=== PATIENT | female | born 1985 | race Caucasian/White ===

== ENCOUNTER 2018-02-18 08:29 | Outpatient (CLI) | payer MEDICAID | END 2018-02-18 23:59 | disposition home or self-care (01) | LOC: RAD 08:29 | PROVIDERS: ATTEND Family Medicine | DX: R56.9 Unspecified convulsions (principal); R06.4 Hyperventilation; F17.200 Nicotine dependence, unspecified, uncomplicated; J45.909 Unspecified asthma, uncomplicated; Z88.2 Allergy status to sulfonamides | CPT/HCPCS: 95816 ==

== ENCOUNTER 2021-03-14 11:42 | Inpatient (IN) | payer MEDICAID, OTHER ==
[~2021-03-14] VITALS: Ht 157.5 cm; Wt 57.2 kg
[2021-03-14 21:39] LABS: BASOPHILS % (AUTO) 0.5 % (0-1); EOSINOPHILS % (AUTO) 0.6 % (0-6); HEMATOCRIT 38.5 % (35.0-45.0); HEMOGLOBIN 12.3 g/dl (12.0-16.0); LYMPHOCYTES # (AUTO) 1.8 X10'3 (1.1-4.8); LYMPHOCYTES % (AUTO) 27.6 % (21-51); MEAN CORPUSCULAR HGB CONC 32.1 g/dL (33.0-36.5); MEAN CORPUSCULAR VOLUME 84.2 FL (78-98); MEAN PLATELET VOLUME 7.5 FL (7.4-10.4); MONOCYTES # (AUTO) 0.7 X10'3 (0-0.9); MONOCYTES % (AUTO) 10.7 % (2-12); NEUTROPHILS % (AUTO) 60.6 % (42-75); PLATELET COUNT 279 X10'3 (140-440); RED BLOOD COUNT 4.57 X10'6 (4.20-5.60); WHITE BLOOD COUNT 6.6 X10'3 (4.5-11.0)
[2021-03-14 21:43] LABS: D-DIMER < 0.19 MG/L FEU (0-0.50)
[2021-03-14 21:48] LABS: ALANINE AMINOTRANSFERASE 30 U/L (12-78); ALBUMIN 4.6 G/DL (3.4-5.0); ALBUMIN/GLOBULIN RATIO 1.2 (1.1-1.5); ALKALINE PHOSPHATASE 58 IU/L (46-116); ANION GAP 12 (8-16); ASPARTATE AMINO TRANSFERASE 25 U/L (10-37); BILIRUBIN,TOTAL 1.1 MG/DL (0.1-1.0); BLOOD UREA NITROGEN 11 MG/DL (7-18); BUN/CREATININE RATIO 17.5 (6.6-38.0); CALCIUM 10.2 MG/DL (8.5-10.1); CHLORIDE 93 MMOL/L (99-107); CREATININE 0.63 MG/DL (0.40-0.90); GLUCOSE 93 MG/DL (70-104); SODIUM 132 MMOL/L (135-145); TOTAL CARBON DIOXIDE 26.6 MMOL/L (24-32); TOTAL PROTEIN 8.5 G/DL (6.4-8.2); eGFR > 90 ML/MIN
[2021-03-14 21:53] LABS: POTASSIUM 2.6 MMOL/L (3.5-5.1)
[2021-03-14] MEDS ORDERED: potassium Cl 20 mEq SR tablet PO STA (21:53)
[2021-03-14] MEDS ORDERED: normal saline 1000ml 1,000 ML IV ONE (22:00)
[2021-03-14] MEDS ORDERED: potassium Cl 10 mEq/100mL bag IV ONE (22:00)
[2021-03-14] MEDS ORDERED: POTA-207 PO (22:15)
[2021-03-14 22:29] LABS: ANISOCYTOSIS 3+; PLATELET ESTIMATE NORMAL
[2021-03-14 22:30] LABS: TARGET CELLS FEW
[2021-03-14 22:32] LABS: LARGE PLATELETS FEW
--- NOTE | 2021-03-15 00:12 | NUR ---
While ambulating, pt heart rate between 125-135.
[2021-03-15] MEDS ORDERED: potassium Cl 20 mEq SR tablet PO PRN (00:50)
[2021-03-15] MEDS ORDERED: HYDROcodone/acetaminophen 5mg/325mg tablet PO PRN (00:50)
[2021-03-15] MEDS ORDERED: acetaminophen 650mg rectal suppository RC PRN (00:50)
[2021-03-15] MEDS ORDERED: acetaminophen 325mg tablet PO PRN ×2 (00:50)
[2021-03-15] MEDS ORDERED: ondansetron/PF 4mg/2ml inj IV PRN (00:50)
[2021-03-15] MEDS ORDERED: morphine 2 MG/ML inj. syringe IV PRN ×2 (00:50)
[2021-03-15] MEDS ORDERED: magnesium 4gm in 100ml NS 100 ML IV PRN (00:50)
[2021-03-15] MEDS ORDERED: ondansetron 4mg rapidly disintigrating tab PO PRN (00:50)
[2021-03-15] MEDS ORDERED: diphenhydrAMINE 25mg capsule PO PRN (00:50)
[2021-03-15] MEDS ORDERED: HYDROcodone/acetaminophen 10/325mg tab PO PRN (00:50)
[2021-03-15] MEDS ORDERED: bisacodyl 10mg suppository rectal RC PRN (00:50)
[2021-03-15] MEDS ORDERED: mag hydrox/Alum hydrox/simeth 30ml oral suspension PO PRN (00:50)
[2021-03-15] MEDS ORDERED: diphenhydrAMINE 50 mg/ml inj IV PRN (00:50)
[2021-03-15] MEDS ORDERED: potassium CL 10mEq/100ml bag 100 ML IV PRN (00:50)
[2021-03-15] MEDS ORDERED: magnesium 2GM in 50ml NS 50 ML IV PRN (00:50)
[2021-03-15] MEDS ORDERED: magnesium Cl slow-release 64mg tablet PO PRN (00:50)
[2021-03-15] MEDS: normal saline 1000ml 1,000 ML IV SCH ×3 (00:50→20:50)
[2021-03-15] MEDS ORDERED: magnesium hydroxide 30ml (MOM) UD suspension PO PRN (00:50)
[2021-03-15 05:41] LABS: APTT 25 SECONDS (22-32)
[2021-03-15 05:47] LABS: CREATINE KINASE 120 U/L (26-192); LIPASE 161 U/L (73-393)
[2021-03-15] MEDS: pantoprazole 40mg Tablet.DR PO SCH (07:34)
[2021-03-15] MEDS: potassium Cl 20 mEq SR tablet PO PRN ×3 (07:35→21:22)
[2021-03-15] MEDS: docusate sod 100mg capsule PO SCH ×2 (07:35→20:00)
[2021-03-15] MEDS: heparin, porcine 5000 units/ml vial SQ SCH ×2 (07:39→21:23)
[2021-03-15] MEDS: K and/or MAG REPLACEMENT MC SCH ×2 (07:40→20:00)
[2021-03-15] MEDS ORDERED: AMLO10TA13 PO (11:02)
[2021-03-15] MEDS ORDERED: CHLO25TA10 PO (11:02)
[2021-03-15] MEDS: atenolol 25mg tablet PO SCH (11:35)
[2021-03-15 14:56] LABS: URINE HCG NEGATIVE (NEG)
[2021-03-15 14:57] LABS: CLARITY,URINE SLIGHTLY CLOUDY (Clear); COLOR,URINE YELLOW (Yellow); GLUCOSE, URINE NEGATIVE (Neg); KETONES,URINE NEGATIVE (Neg); LEUKOCYTE ESTERASE ,URINE NEGATIVE (Neg); NITRITES, URINE NEGATIVE (Neg); OCCULT BLOOD,URINE NEGATIVE (Neg); PH,URINE 5.5 (4.8-8.0); PROTEIN,URINE NEGATIVE (Neg); UROBILINOGEN,URINE 0.2 E.U/dL (0.2-1.0)
[2021-03-15 15:08] LABS: UA COLLECTION TYPE VOIDED
[2021-03-15 15:09] LABS: BACTERIA,URINE FEW /HPF (Neg); MUCUS STRANDS FEW /LPF (Neg); RBC,URINE NONE SEEN /HPF (0-2); SQUAMOUS EPITHELIAL CELL,UR MODERATE /LPF (FEW); WBC,URINE 0-4 /HPF (0-4)
[2021-03-15 15:12] LABS: URINE AMPHETAMINE SCREEN NEGATIVE (Neg); URINE BARBITUATE SCREEN NEGATIVE (Neg); URINE BENZODIAZEPINES SCREEN NEGATIVE (Neg); URINE CANNABINOID SCREEN POSITIVE (Neg); URINE COCAINE SCREEN NEGATIVE (Neg); URINE METHADONE SCREEN NEGATIVE (Neg); URINE OPIATE SCREEN NEGATIVE (Neg); URINE PHENCYCLIDINE SCREEN NEGATIVE (Neg)
[2021-03-15 18:00] VITALS: BP 124/79
--- NOTE | 2021-03-15 18:36 | NUR ---
Problems reprioritized. Patient report given, questions answered & plan of care reviewed with Gibson CASTRO.
[2021-03-15] MEDS ORDERED: temazepam 15mg capsule PO PRN (21:00)
[2021-03-15 22:00] VITALS: BP 116/74
[2021-03-16 02:00] VITALS: BP 112/70
--- NOTE | 2021-03-16 06:29 | NUR ---
Patient in room U 3017. I have received report from Gibson CASTRO and had the opportunity to ask questions and assume patient care. Patient resting in bed in no acute distress.
[2021-03-16] MEDS: normal saline 1000ml 1,000 ML IV SCH (06:50)
[2021-03-16 07:00] VITALS: BP 101/74
[2021-03-16 07:31] LABS: BASOPHILS % (AUTO) 0.6 % (0-1); EOSINOPHILS # (AUTO) 0.1 X10'3 (0-0.9); EOSINOPHILS % (AUTO) 1.5 % (0-6); HEMOGLOBIN 10.6 g/dl (12.0-16.0); LYMPHOCYTES # (AUTO) 1.6 X10'3 (1.1-4.8); LYMPHOCYTES % (AUTO) 29.6 % (21-51); MEAN CORPUSCULAR HEMOGLOBIN 27.6 PG (27.0-31.0); MEAN CORPUSCULAR VOLUME 86.4 FL (78-98); MONOCYTES # (AUTO) 0.6 X10'3 (0-0.9); MONOCYTES % (AUTO) 10.4 % (2-12); NEUTROPHILS # (AUTO) 3.2 X10'3 (1.8-7.7); NEUTROPHILS % (AUTO) 57.9 % (42-75); PLATELET COUNT 228 X10'3 (140-440); RED BLOOD COUNT 3.82 X10'6 (4.20-5.60); RED CELL DISTRIBUTION WIDTH 26.1 % (11.5-14.5); WHITE BLOOD COUNT 5.6 X10'3 (4.5-11.0)
[2021-03-16 07:42] LABS: ALANINE AMINOTRANSFERASE 23 U/L (12-78); ALBUMIN 3.7 G/DL (3.4-5.0); ALBUMIN/GLOBULIN RATIO 1.1 (1.1-1.5); ALKALINE PHOSPHATASE 43 IU/L (46-116); ANION GAP 10 (8-16); ASPARTATE AMINO TRANSFERASE 23 U/L (10-37); BILIRUBIN,TOTAL 0.2 MG/DL (0.1-1.0); BLOOD UREA NITROGEN 13 MG/DL (7-18); BUN/CREATININE RATIO 19.4 (6.6-38.0); CALCIUM 8.7 MG/DL (8.5-10.1); CHLORIDE 103 MMOL/L (99-107); CHOL/HDL RATIO 3.1 (0.00-4.99); CHOLESTEROL 197 MG/DL (0-200); CREATININE 0.67 MG/DL (0.40-0.90); GLUCOSE 85 MG/DL (70-104); HDL CHOLESTEROL 63 MG/DL (35-60); LDL CHOLESTEROL 91 MG/DL (50-100); MAGNESIUM 2.3 MG/DL (1.5-2.4); POTASSIUM 3.7 MMOL/L (3.5-5.1); SODIUM 140 MMOL/L (135-145); TOTAL CARBON DIOXIDE 26.7 MMOL/L (24-32); TOTAL PROTEIN 7.2 G/DL (6.4-8.2); TRIGLYCERIDES 290 MG/DL (20-135); eGFR > 90 ML/MIN
[2021-03-16] MEDS: K and/or MAG REPLACEMENT MC SCH (08:00)
[2021-03-16] MEDS ORDERED: amLODIPine 5mg tablet PO SCH (08:00)
[2021-03-16] MEDS: heparin, porcine 5000 units/ml vial SQ SCH (08:00)
[2021-03-16 09:00] LABS: ANISOCYTOSIS 3+; HYPOCHROMASIA 1+; PLATELET ESTIMATE NORMAL; POLYCHROMASIA 1+; TARGET CELLS 1+; TEAR DROP CELLS FEW
[2021-03-16] MEDS: docusate sod 100mg capsule PO SCH (09:31)
[2021-03-16] MEDS: pantoprazole 40mg Tablet.DR PO SCH (09:31)
[2021-03-16] MEDS: atenolol 25mg tablet PO SCH (09:32)
[2021-03-16] MEDS ORDERED: ATEN-168 PO (10:29)
[2021-03-16] MEDS ORDERED: NOR5T PO (10:29)
[2021-03-16 11:00] VITALS: BP 113/71
--- NOTE | 2021-03-16 12:37 | NUR ---
Pt was DC to home and drove herself home. PIV was removed with cannula intact. DC instructions and warning s/s were reviewed with the patient and she verbalized understanding. Pt alert, oriented, and appropriated at time of DC . All pt belongings went with the pt.
== END 2021-03-16 12:01 | disposition home or self-care (01) | DRG 309 ==
LOC: ER 11:43 → ED HOLD 03-15 00:55 → PCU 3S 03-15 15:35
PROVIDERS: ADMIT Family Medicine; ATTEND Internal Medicine
DX: R00.0 Tachycardia, unspecified (principal); E87.1 Hypo-osmolality and hyponatremia; E87.6 Hypokalemia; E03.9 Hypothyroidism, unspecified; I49.9 Cardiac arrhythmia, unspecified; T50.2X5A Adverse effect of carbonic-anhydrase inhibitors, benzothiadiazides and other diuretics, initial encounter; F17.200 Nicotine dependence, unspecified, uncomplicated; I10 Essential (primary) hypertension; F41.9 Anxiety disorder, unspecified; R94.6 Abnormal results of thyroid function studies; Z88.2 Allergy status to sulfonamides; Z79.899 Other long term (current) drug therapy; Y92.89 Other specified places as the place of occurrence of the external cause; Z71.6 Tobacco abuse counseling
CPT/HCPCS: 36415; 71045; 80053; 80061; 80305; 81001; 81025; 82550; 83690; 83735; 83880; 84100; 84132; 84145; 84439; 84443; 84480; 84484; 85008; 85025; 85379; 85610; 85730; 93306; 96374; 96375; 99285; G0378; J1644; J3480; J7030

== ENCOUNTER 2021-08-18 13:53 | Emergency (ER) | payer OTHER ==
[~2021-08-18] VITALS: Ht 157.5 cm; Wt 57.7 kg
[~2021-08-18 13:53] MED LIST: ATEN-168 PO; NOR5T PO
[2021-08-18 14:53] LABS: BASOPHILS % (AUTO) 0.4 % (0-1); EOSINOPHILS % (AUTO) 0.2 % (0-6); HEMATOCRIT 36.3 % (35.0-45.0); HEMOGLOBIN 11.4 g/dl (12.0-16.0); LYMPHOCYTES # (AUTO) 1.5 X10'3 (1.1-4.8); LYMPHOCYTES % (AUTO) 28.7 % (21-51); MEAN CORPUSCULAR HEMOGLOBIN 25.1 PG (27.0-31.0); MEAN CORPUSCULAR HGB CONC 31.4 g/dL (33.0-36.5); MEAN CORPUSCULAR VOLUME 79.7 FL (78-98); MONOCYTES # (AUTO) 0.5 X10'3 (0-0.9); NEUTROPHILS # (AUTO) 3.2 X10'3 (1.8-7.7); NEUTROPHILS % (AUTO) 61.7 % (42-75); PLATELET COUNT 237 X10'3 (140-440); RED BLOOD COUNT 4.55 X10'6 (4.20-5.60); RED CELL DISTRIBUTION WIDTH 21.5 % (11.5-14.5); WHITE BLOOD COUNT 5.2 X10'3 (4.5-11.0)
[2021-08-18 15:05] LABS: ALKALINE PHOSPHATASE 47 IU/L (46-116)
[2021-08-18 15:12] LABS: ALANINE AMINOTRANSFERASE 16 U/L (12-78); ALBUMIN 3.5 G/DL (3.4-5.0); ANION GAP 14 (8-16); ASPARTATE AMINO TRANSFERASE 21 U/L (10-37); BILIRUBIN,TOTAL 0.2 MG/DL (0.1-1.0); BLOOD UREA NITROGEN 9 MG/DL (7-18); BUN/CREATININE RATIO 12.5 (6.6-38.0); CALCIUM 7.9 MG/DL (8.5-10.1); CHLORIDE 112 MMOL/L (99-107); CREATININE 0.72 MG/DL (0.40-0.90); GLUCOSE 92 MG/DL (70-104); POTASSIUM 3.6 MMOL/L (3.5-5.1); SODIUM 144 MMOL/L (135-145); TOTAL CARBON DIOXIDE 18.1 MMOL/L (24-32); TOTAL PROTEIN 7.1 G/DL (6.4-8.2); eGFR > 90 ML/MIN
[2021-08-18 15:32] LABS: BETA HCG,QUANTITATIVE < 1.0 mIU/ml
[2021-08-18] MEDS ORDERED: normal saline 1000ml 1,000 ML IV ONE (15:35)
[2021-08-18] MEDS ORDERED: metoprolol tartrate 1mg/ml inj IV ONE (15:40)
[2021-08-18] MEDS ORDERED: LORazepam 2 mg/ml vial IV ONE (15:40)
[2021-08-18 16:02] LABS: ANISOCYTOSIS 3+; MICROCYTOSIS 1+; PLATELET ESTIMATE NORMAL
[2021-08-18 16:04] LABS: LARGE PLATELETS FEW; POLYCHROMASIA FEW
[2021-08-18 17:48] VITALS: BP 123/83
== END 2021-08-18 17:51 | disposition home or self-care (01) ==
LOC: ER 13:53
DX: R00.2 Palpitations (principal); I10 Essential (primary) hypertension; F12.90 Cannabis use, unspecified, uncomplicated; Z98.890 Other specified postprocedural states; Z88.2 Allergy status to sulfonamides; Z79.899 Other long term (current) drug therapy
CPT/HCPCS: 36415; 71045; 80053; 83880; 84443; 84484; 84702; 85008; 85025; 93005; 96361; 96374; 96375; 99285; J2060; J3490; J7030

== ENCOUNTER 2022-11-16 17:27 | Emergency (ER) | payer MEDICAID ==
[~2022-11-16] VITALS: Ht 157.5 cm; Wt 65.0 kg
[2022-11-16 17:31] VITALS: TEMP 98
[2022-11-16 18:45] VITALS: BP 159/106; PULSE 93; RESP 16; O2SAT 99
== END 2022-11-16 21:32 | disposition left against medical advice (07) ==
LOC: ER 17:27
DX: M54.59 Other low back pain (principal); Z53.21 Procedure and treatment not carried out due to patient leaving prior to being seen by health care provider
CPT/HCPCS: 99281

== ENCOUNTER 2023-07-29 12:43 | Emergency (ER) | payer MEDICAID ==
[~2023-07-29] VITALS: Ht 157.5 cm; Wt 59.1 kg
[2023-07-29 14:07] LABS: ALANINE AMINOTRANSFERASE 29 U/L (12-78); ALBUMIN 4.1 G/DL (3.4-5.0); ALBUMIN/GLOBULIN RATIO 1.1 (1.1-1.5); ALKALINE PHOSPHATASE 50 IU/L (46-116); ANION GAP 13 (8-16); ASPARTATE AMINO TRANSFERASE 37 U/L (10-37); BILIRUBIN,TOTAL 0.3 MG/DL (0.1-1.0); BLOOD UREA NITROGEN 8 MG/DL (7-18); BUN/CREATININE RATIO 11.8 (10.0-20.0); CALCIUM 8.4 MG/DL (8.5-10.1); CHLORIDE 98 MMOL/L (99-107); CREATININE 0.68 MG/DL (0.40-0.90); GLUCOSE 121 MG/DL (70-104); POTASSIUM 3.2 MMOL/L (3.5-5.1); SODIUM 135 MMOL/L (135-145); TOTAL CARBON DIOXIDE 24.3 MMOL/L (24-32); eCRCL 89 ML/MIN; eGFR > 90 ML/MIN
[2023-07-29] MEDS: ipratropium/albuterol 3ml nebule NEB ONE (16:12)
[2023-07-29 16:13] VITALS: PULSE 87; RESP 16; O2SAT 100
[2023-07-29 16:14] LABS: BASOPHILS % (AUTO) 0.7 % (0-1); EOSINOPHILS % (AUTO) 0.8 % (0-6); HEMATOCRIT 30.1 % (35.0-45.0); HEMOGLOBIN 9.3 g/dl (12.0-16.0); LYMPHOCYTES # (AUTO) 1.6 X10'3 (1.1-4.8); LYMPHOCYTES % (AUTO) 39.5 % (21-51); MEAN CORPUSCULAR HEMOGLOBIN 24.1 PG (27.0-31.0); MEAN CORPUSCULAR HGB CONC 30.8 g/dL (33.0-36.5); MEAN CORPUSCULAR VOLUME 78.3 FL (78-98); MEAN PLATELET VOLUME 7.2 FL (7.4-10.4); MONOCYTES # (AUTO) 0.2 X10'3 (0-0.9); NEUTROPHILS # (AUTO) 2.2 X10'3 (1.8-7.7); PLATELET COUNT 133 X10'3 (140-440); RED BLOOD COUNT 3.84 X10'6 (4.20-5.60); RED CELL DISTRIBUTION WIDTH 26.1 % (11.5-14.5); WHITE BLOOD COUNT 4.1 X10'3 (4.5-11.0)
[2023-07-29 16:26] LABS: D-DIMER 0.68 MG/L FEU (0-0.50)
[2023-07-29 16:36] VITALS: PULSE 81; RESP 16; O2SAT 100
[2023-07-29 16:46] LABS: PLATELET ESTIMATE DECREASED
[2023-07-29 16:47] LABS: ANISOCYTOSIS 3+; ELLIPTOCYTES FEW; MICROCYTOSIS 1+; POLYCHROMASIA FEW
[2023-07-29 16:48] LABS: HYPOCHROMASIA 1+
[2023-07-29] MEDS: methylPREDNISolone sod succ 125mg/2ml vial IV ONE (17:02)
[2023-07-29] MEDS ORDERED: DEC4T PO (18:25)
[2023-07-29] MEDS ORDERED: ALBU8HFA INH (18:25)
[2023-07-29] MEDS ORDERED: AMOX-580 PO (18:26)
[2023-07-29] MEDS ORDERED: albut (18:29)
[2023-07-29 19:07] VITALS: BP 129/68; PULSE 66; RESP 16; TEMP 98.9; O2SAT 99
== END 2023-07-29 19:11 | disposition left against medical advice (07) ==
LOC: ER 12:44
DX: M54.2 Cervicalgia (principal); R50.9 Fever, unspecified; Z53.21 Procedure and treatment not carried out due to patient leaving prior to being seen by health care provider
CPT/HCPCS: 36415; 71045; 80053; 85008; 85025; 85379; 87502; 87503; 93005; 94640; 96374; J2919; 94760; 99285

== ENCOUNTER 2024-05-08 22:43 | Emergency (ER) | payer MEDICAID ==
[~2024-05-08] VITALS: Ht 160 cm; Wt 55.2 kg
[~2024-05-08 22:43] MED LIST changes: +albut
[2024-05-08 22:45] VITALS: BP 187/99; PULSE 120; RESP 16; TEMP 98.2; O2SAT 98
[2024-05-08 23:30] LABS: STREP A SCREEN NEGATIVE (Neg)
== END 2024-05-08 23:34 | disposition left against medical advice (07) ==
LOC: ER 22:44
DX: J02.9 Acute pharyngitis, unspecified (principal); Z88.2 Allergy status to sulfonamides
CPT/HCPCS: 87081; 87880